=== PATIENT | female | born 1975 | race Caucasian/White ===

== ENCOUNTER 2021-10-19 16:44 | Emergency (ER) | payer OTHER ==
[~2021-10-19] VITALS: Ht 154.9 cm; Wt 81.8 kg
[2021-10-19] MEDS ORDERED: LISI-894 PO (17:09)
[2021-10-19] MEDS ORDERED: HYDR25TA2 PO (17:09)
[2021-10-19 18:40] VITALS: BP 119/74
[2021-10-19 19:29] LABS: APPEARANCE,URINE CLEAR (CLEAR); BILIRUBIN,URINE NEGATIVE (NEGATIVE); GLUCOSE, URINE (UA) NEGATIVE (NEGATIVE); KETONES,URINE NEGATIVE (NEGATIVE); LEUKOCYTE ESTERASE ,URINE NEGATIVE (NEGATIVE); NITRATE,URINE NEGATIVE (NEGATIVE); OCCULT BLOOD,URINE LARGE (NEGATIVE); PH,URINE 5.5 (5.0-8.0); PROTEIN,URINE NEGATIVE (NEGATIVE); SPECIFIC GRAVITIY, URINE 1.011 (1.003-1.030); UROBILINOGEN,URINE <=1.0 mg/dL (<=1.0)
[2021-10-19 19:39] LABS: BACTERIA,URINE None Seen /HPF (None Seen); RBC,URINE 26-50 /HPF (0-2); SQUAMOUS EPITHELIAL CELL,UR Few /LPF (None Seen); WBC,URINE 0-2 /HPF (0-5)
== END 2021-10-19 20:46 | disposition home or self-care (01) ==
LOC: EMS 16:44
DX: R33.9 Retention of urine, unspecified (principal); I10 Essential (primary) hypertension; Z79.899 Other long term (current) drug therapy
CPT/HCPCS: 51702; 81001; 99284; Z7502

== ENCOUNTER 2021-11-15 14:00 | Emergency (ER) | payer OTHER ==
[~2021-11-15] VITALS: Ht 157.5 cm; Wt 86.4 kg
[~2021-11-15 14:00] MED LIST: HYDR-4870 PO; LISI-894 PO
[2021-11-15 15:39] LABS: APPEARANCE,URINE CLEAR (CLEAR); BILIRUBIN,URINE NEGATIVE (NEGATIVE); GLUCOSE, URINE (UA) NEGATIVE (NEGATIVE); KETONES,URINE NEGATIVE (NEGATIVE); LEUKOCYTE ESTERASE ,URINE NEGATIVE (NEGATIVE); NITRATE,URINE NEGATIVE (NEGATIVE); OCCULT BLOOD,URINE NEGATIVE (NEGATIVE); PH,URINE 5.5 (5.0-8.0); PROTEIN,URINE NEGATIVE (NEGATIVE); UROBILINOGEN,URINE <=1.0 mg/dL (<=1.0)
[2021-11-15 16:05] VITALS: BP 109/65
== END 2021-11-15 17:03 | disposition home or self-care (01) ==
LOC: EMS 14:00
DX: R33.9 Retention of urine, unspecified (principal); I10 Essential (primary) hypertension
CPT/HCPCS: 51702; 81003; 99284

== ENCOUNTER 2021-11-22 08:38 | Emergency (ER) | payer OTHER ==
[~2021-11-22] VITALS: Ht 157.5 cm; Wt 86.6 kg
[2021-11-22 08:41] VITALS: BP 120/43
== END 2021-11-22 10:55 | disposition home or self-care (01) ==
LOC: EMS 08:39
DX: R33.9 Retention of urine, unspecified (principal); N81.4 Uterovaginal prolapse, unspecified; I10 Essential (primary) hypertension
CPT/HCPCS: 99281; Z7502

== ENCOUNTER 2021-12-15 12:24 | Emergency (ER) | payer OTHER ==
[~2021-12-15] VITALS: Ht 154.9 cm; Wt 85.5 kg
[~2021-12-15 12:24] MED LIST changes: -HYDR-4870 PO; +HYDR25TA2 PO
[2021-12-15 13:13] LABS: BASOPHILS % (AUTO) 0.6 % (0.0-2.0); EOSINOPHILS % (AUTO) 2.2 % (1.0-6.0); HEMATOCRIT 39.5 % (36-46); HEMOGLOBIN 13.5 g/dL (12.0-16.0); LYMPHOCYTES # (AUTO) 1.8 K/uL (1.0-4.8); LYMPHOCYTES % (AUTO) 16.8 % (22.0-44.0); MEAN CORPUSCULAR HGB CONC 34.2 G/dL (31.0-37.0); MEAN CORPUSCULAR VOLUME 88 fL (80-100); MONOCYTES # (AUTO) 0.7 K/uL (0.1-1.0); MONOCYTES % (AUTO) 6.1 % (2.0-9.0); NEUTROPHILS % (AUTO) 74.3 % (40.0-70.0); PLATELET COUNT (AUTO) 424 K/uL (150-450); RED BLOOD CELL COUNT(AUTO) 4.49 MIL/uL (4.00-5.20)
[2021-12-15 13:22] LABS: ANION GAP 9 mmol/L (8-16); CARBON DIOXIDE 22 mmol/L (22-29); CHLORIDE 105 mmol/L (98-107); CREATININE 0.75 mg/dL (0.60-1.30); GLOMERULAR FILTR. RATE CALC > 60 mL/min (>60); GLUCOSE,RANDOM 116 mg/dL (70-110); POTASSIUM 4.1 mmol/L (3.5-5.1); SODIUM SERUM 136 mmol/L (136-145); UREA NITROGEN, BLOOD 10 mg/dL (7-18)
[2021-12-15 13:33] LABS: HCG,QUANTITATIVE < 1 mIU/mL (0-6)
[2021-12-15 16:00] VITALS: BP 127/76
== END 2021-12-15 16:55 | disposition home or self-care (01) ==
LOC: EMS 12:24
DX: R33.9 Retention of urine, unspecified (principal); D25.9 Leiomyoma of uterus, unspecified; I10 Essential (primary) hypertension
CPT/HCPCS: 51702; 74176; 80048; 84702; 85025; 99284

== ENCOUNTER 2022-01-12 15:41 | Emergency (ER) | payer OTHER ==
[~2022-01-12] VITALS: Ht 157.5 cm; Wt 85.5 kg
[2022-01-12 17:49] LABS: APPEARANCE,URINE CLEAR (CLEAR); BILIRUBIN,URINE NEGATIVE (NEGATIVE); GLUCOSE, URINE (UA) NEGATIVE (NEGATIVE); KETONES,URINE NEGATIVE (NEGATIVE); LEUKOCYTE ESTERASE ,URINE NEGATIVE (NEGATIVE); NITRATE,URINE NEGATIVE (NEGATIVE); OCCULT BLOOD,URINE SMALL (NEGATIVE); PROTEIN,URINE NEGATIVE (NEGATIVE); SPECIFIC GRAVITIY, URINE 1.016 (1.003-1.030); UROBILINOGEN,URINE <=1.0 mg/dL (<=1.0)
[2022-01-12 18:12] LABS: BACTERIA,URINE Many /HPF (None Seen); SQUAMOUS EPITHELIAL CELL,UR Few /LPF (None Seen); WBC,URINE 0-2 /HPF (0-5)
[2022-01-12 19:06] VITALS: BP 132/71
[2022-01-12] MEDS ORDERED: CEPH-558 PO (19:21)
[2022-01-12] MEDS ORDERED: POLY17PO PO (19:21)
== END 2022-01-12 20:10 | disposition home or self-care (01) ==
LOC: EMS 15:50
DX: R33.9 Retention of urine, unspecified (principal); I10 Essential (primary) hypertension
CPT/HCPCS: 51702; 74022; 81001; 87086; 99284; 87077; Z7502

== ENCOUNTER 2022-02-26 13:39 | Emergency (ER) | payer OTHER ==
[~2022-02-26] VITALS: Ht 154.9 cm; Wt 83.2 kg
[~2022-02-26 13:39] MED LIST changes: +CEPH-558 PO; +POLY17PO PO
[2022-02-26 15:29] VITALS: BP 128/74
== END 2022-02-26 15:38 | disposition left against medical advice (07) ==
LOC: EMS 14:28
DX: Z46.6 Encounter for fitting and adjustment of urinary device (principal); I10 Essential (primary) hypertension; F41.9 Anxiety disorder, unspecified; Z87.440 Personal history of urinary (tract) infections
CPT/HCPCS: 99281; 99283

== ENCOUNTER 2022-03-05 11:49 | Emergency (ER) | payer OTHER ==
[~2022-03-05] VITALS: Ht 154.9 cm; Wt 86.3 kg
[~2022-03-05 11:49] MED LIST changes: -CEPH-558 PO
[2022-03-05 13:44] LABS: APPEARANCE,URINE CLEAR (CLEAR); BILIRUBIN,URINE NEGATIVE (NEGATIVE); GLUCOSE, URINE (UA) NEGATIVE (NEGATIVE); KETONES,URINE NEGATIVE (NEGATIVE); LEUKOCYTE ESTERASE ,URINE SMALL (NEGATIVE); NITRATE,URINE NEGATIVE (NEGATIVE); OCCULT BLOOD,URINE MODERATE (NEGATIVE); PH,URINE 7.5 (5.0-8.0); PROTEIN,URINE NEGATIVE (NEGATIVE); UROBILINOGEN,URINE <=1.0 mg/dL (<=1.0)
[2022-03-05 14:16] LABS: BACTERIA,URINE Many /HPF (None Seen); RBC,URINE 0-2 /HPF (0-2)
[2022-03-05] MEDS ORDERED: CEPHALEXIN MONOHYDRATE 500 MG CAPSULE PO ONE (14:30)
[2022-03-05 14:43] VITALS: BP 150/85
[2022-03-05] MEDS ORDERED: CEPH-558 PO (14:43)
== END 2022-03-05 15:14 | disposition home or self-care (01) ==
LOC: EMS 11:57
DX: R33.9 Retention of urine, unspecified (principal); N39.0 Urinary tract infection, site not specified; I10 Essential (primary) hypertension
CPT/HCPCS: 51702; 81001; 81003; 84703; 87086; 87186; 99284

== ENCOUNTER 2022-04-03 15:32 | Emergency (ER) | payer OTHER ==
[~2022-04-03] VITALS: Ht 160 cm; Wt 81.0 kg
[~2022-04-03 15:32] MED LIST changes: +CEPH-558 PO
[2022-04-03 16:13] VITALS: BP 126/70
== END 2022-04-03 16:50 | disposition home or self-care (01) ==
LOC: EMS 15:32
DX: R33.9 Retention of urine, unspecified (principal); N81.4 Uterovaginal prolapse, unspecified; I10 Essential (primary) hypertension; Z46.6 Encounter for fitting and adjustment of urinary device
CPT/HCPCS: 99283; Z7502

== ENCOUNTER 2022-04-06 07:40 | Emergency (ER) | payer OTHER ==
[~2022-04-06] VITALS: Ht 157.5 cm; Wt 77.3 kg
[2022-04-06 09:39] VITALS: BP 107/62
[2022-04-06 10:06] LABS: APPEARANCE,URINE CLEAR (CLEAR); BILIRUBIN,URINE NEGATIVE (NEGATIVE); GLUCOSE, URINE (UA) NEGATIVE (NEGATIVE); KETONES,URINE NEGATIVE (NEGATIVE); LEUKOCYTE ESTERASE ,URINE NEGATIVE (NEGATIVE); NITRATE,URINE NEGATIVE (NEGATIVE); OCCULT BLOOD,URINE SMALL (NEGATIVE); PROTEIN,URINE NEGATIVE (NEGATIVE); SPECIFIC GRAVITIY, URINE 1.009 (1.003-1.030); UROBILINOGEN,URINE <=1.0 mg/dL (<=1.0)
[2022-04-06 10:14] LABS: BACTERIA,URINE None Seen /HPF (None Seen); SQUAMOUS EPITHELIAL CELL,UR Rare /LPF (None Seen); WBC,URINE None Seen /HPF (0-5)
[2022-04-06] MEDS ORDERED: CEPH-558 PO (10:33)
== END 2022-04-06 10:48 | disposition home or self-care (01) ==
LOC: EMS 07:41
DX: R33.9 Retention of urine, unspecified (principal); I10 Essential (primary) hypertension
CPT/HCPCS: 51702; 81001; 99284; Z7502

== ENCOUNTER 2022-04-28 15:19 | Emergency (ER) | payer OTHER ==
[~2022-04-28] VITALS: Ht 160 cm; Wt 84.1 kg
[2022-04-28 15:20] VITALS: BP 149/87
[2022-04-28 16:43] LABS: APPEARANCE,URINE HAZY (CLEAR); BILIRUBIN,URINE NEGATIVE (NEGATIVE); GLUCOSE, URINE (UA) NEGATIVE (NEGATIVE); KETONES,URINE NEGATIVE (NEGATIVE); LEUKOCYTE ESTERASE ,URINE LARGE (NEGATIVE); NITRATE,URINE NEGATIVE (NEGATIVE); OCCULT BLOOD,URINE SMALL (NEGATIVE); PH,URINE 7.5 (5.0-8.0); PROTEIN,URINE 30-70 mg/dL (NEGATIVE); SPECIFIC GRAVITIY, URINE 1.017 (1.003-1.030); UROBILINOGEN,URINE <=1.0 mg/dL (<=1.0)
[2022-04-28 16:46] LABS: WBC,URINE 51-100 /HPF (0-5)
[2022-04-28 16:47] LABS: BACTERIA,URINE Few /HPF (None Seen); SQUAMOUS EPITHELIAL CELL,UR Few /LPF (None Seen)
== END 2022-04-28 17:07 | disposition home or self-care (01) ==
LOC: EMS 15:51
DX: T83.031A Leakage of indwelling urethral catheter, initial encounter (principal); N39.0 Urinary tract infection, site not specified; R33.9 Retention of urine, unspecified; I10 Essential (primary) hypertension; Z79.899 Other long term (current) drug therapy
CPT/HCPCS: 81001; 87086; 87186; 99283

== ENCOUNTER 2022-04-29 02:27 | Emergency (ER) | payer OTHER ==
[~2022-04-29] VITALS: Ht 157.5 cm; Wt 82.0 kg
[2022-04-29 05:12] LABS: APPEARANCE,URINE CLEAR (CLEAR); BILIRUBIN,URINE NEGATIVE (NEGATIVE); GLUCOSE, URINE (UA) NEGATIVE (NEGATIVE); KETONES,URINE NEGATIVE (NEGATIVE); LEUKOCYTE ESTERASE ,URINE TRACE (NEGATIVE); NITRATE,URINE NEGATIVE (NEGATIVE); OCCULT BLOOD,URINE SMALL (NEGATIVE); PROTEIN,URINE NEGATIVE (NEGATIVE); SPECIFIC GRAVITIY, URINE 1.009 (1.003-1.030); UROBILINOGEN,URINE <=1.0 mg/dL (<=1.0)
[2022-04-29 05:21] LABS: BACTERIA,URINE None Seen /HPF (None Seen); SQUAMOUS EPITHELIAL CELL,UR Few /LPF (None Seen); WBC,URINE 0-2 /HPF (0-5)
[2022-04-29 05:30] VITALS: BP 118/65
== END 2022-04-29 05:33 | disposition home or self-care (01) ==
LOC: EMS 02:28
DX: R33.9 Retention of urine, unspecified (principal); I10 Essential (primary) hypertension; Z79.899 Other long term (current) drug therapy
CPT/HCPCS: 51702; 81001; 99284; Z7502

== ENCOUNTER 2022-06-16 17:04 | Emergency (ER) | payer OTHER ==
[~2022-06-16] VITALS: Ht 157.5 cm; Wt 81.8 kg
[~2022-06-16 17:04] MED LIST changes: -CEPH-558 PO; -POLY17PO PO
[2022-06-16] MEDS ORDERED: CEPHALEXIN MONOHYDRATE 500 MG CAPSULE PO ONE (18:00)
[2022-06-16] MEDS ORDERED: ACETAMINOPHEN 500 MG TABLET PO ONE (18:00)
[2022-06-16] MEDS ORDERED: CEPH-558 PO (20:17)
[2022-06-16 20:19] VITALS: BP 137/89
[2022-06-16 20:26] LABS: APPEARANCE,URINE HAZY (CLEAR); BILIRUBIN,URINE NEGATIVE (NEGATIVE); GLUCOSE, URINE (UA) NEGATIVE (NEGATIVE); KETONES,URINE NEGATIVE (NEGATIVE); LEUKOCYTE ESTERASE ,URINE LARGE (NEGATIVE); NITRATE,URINE NEGATIVE (NEGATIVE); OCCULT BLOOD,URINE MODERATE (NEGATIVE); PH,URINE 5.5 (5.0-8.0); PROTEIN,URINE TRACE mg/dL (NEGATIVE); SPECIFIC GRAVITIY, URINE 1.015 (1.003-1.030); UROBILINOGEN,URINE <=1.0 mg/dL (<=1.0)
[2022-06-16 20:38] LABS: SQUAMOUS EPITHELIAL CELL,UR Few /LPF (None Seen)
[2022-06-16 20:40] LABS: BACTERIA,URINE Few /HPF (None Seen); WBC,URINE 51-100 /HPF (0-5)
== END 2022-06-16 20:27 | disposition home or self-care (01) ==
LOC: EMS 17:08
DX: N39.0 Urinary tract infection, site not specified (principal); I10 Essential (primary) hypertension; Z49.01 Encounter for fitting and adjustment of extracorporeal dialysis catheter
CPT/HCPCS: 81001; 84703; 87086; 87186; 99283

== ENCOUNTER 2022-06-20 09:33 | Emergency (ER) | payer OTHER ==
[~2022-06-20] VITALS: Ht 157.5 cm; Wt 81.8 kg
[~2022-06-20 09:33] MED LIST changes: +CEPH-558 PO
[2022-06-20 10:09] VITALS: BP 150/93
[2022-06-20 12:25] LABS: APPEARANCE,URINE CLEAR (CLEAR); BILIRUBIN,URINE NEGATIVE (NEGATIVE); GLUCOSE, URINE (UA) NEGATIVE (NEGATIVE); KETONES,URINE NEGATIVE (NEGATIVE); LEUKOCYTE ESTERASE ,URINE NEGATIVE (NEGATIVE); NITRATE,URINE NEGATIVE (NEGATIVE); OCCULT BLOOD,URINE SMALL (NEGATIVE); PH,URINE 5.5 (5.0-8.0); PROTEIN,URINE NEGATIVE (NEGATIVE); UROBILINOGEN,URINE <=1.0 mg/dL (<=1.0)
[2022-06-20 12:33] LABS: BACTERIA,URINE None Seen /HPF (None Seen); WBC,URINE None Seen /HPF (0-5)
[2022-06-20 12:34] LABS: SQUAMOUS EPITHELIAL CELL,UR Rare /LPF (None Seen)
== END 2022-06-20 12:57 | disposition home or self-care (01) ==
LOC: EMS 09:35
DX: R33.9 Retention of urine, unspecified (principal); I10 Essential (primary) hypertension
CPT/HCPCS: 51702; 81001; 99284

== ENCOUNTER 2022-08-02 07:15 | Emergency (ER) | payer OTHER ==
[~2022-08-02] VITALS: Ht 157.5 cm; Wt 81.8 kg
[2022-08-02 07:18] VITALS: BP 136/93
== END 2022-08-02 10:17 | disposition left against medical advice (07) ==
LOC: EMS 07:16
DX: Z46.6 Encounter for fitting and adjustment of urinary device (principal); I10 Essential (primary) hypertension
CPT/HCPCS: 99281; Z7502